=== PATIENT | female | born 1985 ===

== ENCOUNTER 2017-10-07 12:30 | Emergency (ER) | payer OTHER ==
--- NOTE | 2017-10-07 13:39 | ED PDOC ---
HPI: General Adult Time Seen by Provider: 10/07/17 13:35 Chief Complaint (Nursing): Breast Problem Chief Complaint (Provider): Breast Pain History Per: Patient History/Exam Limitations: no limitations Onset/Duration Of Symptoms: Days (x2) Current Symptoms Are (Timing): Still Present Additional Complaint(s): Ibeth Dallas is a 32 year old female, with no past medical history, who presents to the emergency department complaining of bilateral breast pain, and generalized body aches onset for x2 days. Patient denies breast feeding, fever, cough or cold. No further medical complaints. PMD: None provided. Past Medical History Reviewed: Historical Data, Nursing Documentation, Vital Signs Vital Signs: Last Vital Signs Temp 98.3 F 10/07/17 17:13 Pulse 86 10/07/17 17:13 Resp 16 10/07/17 17:13 BP 109/62 10/07/17 17:13 Pulse Ox 100 10/07/17 17:13 - Medical History PMH: No Chronic Diseases - Surgical History Surgical History: No Surg Hx - Family History Family History: States: Unknown Family Hx - Home Medications Home Medications: Ambulatory Orders Medication Instructions Recorded Vit No.126/Iron/Folic 1 tab PO DAILY 03/16/16 [Prenavite] Ibuprofen [Motrin] 600 mg PO Q6H PRN #30 tab 03/20/16 Ibuprofen [Motrin] 600 mg PO Q8 PRN #21 tab 10/07/17 - Allergies Allergies/Adverse Reactions: Allergies Allergy/AdvReac Type Severity Reaction Status Date / Time No Known Allergies Allergy Verified 09/21/15 21:55 Review of Systems ROS Statement: Except As Marked, All Systems Reviewed And Found Negative Constitutional: Positive for: Other (generalized body aches). Negative for: Fever Respiratory: Negative for: Cough Musculoskeletal: Positive for: Other (Bilateral breast pain) Physical Exam - Reviewed Nursing Documentation Reviewed: Yes Vital Signs Reviewed: Yes - Physical Exam Appears: Positive for: Non-toxic Head Exam: Positive for: ATRAUMATIC, NORMAL INSPECTION, NORMOCEPHALIC Skin: Positive for: Normal Color, Warm, Dry Eye Exam: Positive for: Normal appearance Neck: Positive for: Painless ROM Cardiovascular/Chest: Positive for: Regular Rate, Rhythm. Negative for: Murmur Respiratory: Positive for: Normal Breath Sounds (clear auscultation b/l). Negative for: Respiratory Distress Gastrointestinal/Abdominal: Positive for: Soft, Other (b/l axillary region tenderness, along abdomen and back. Multiple lymph nodes noted. ). Negative for : Tenderness Extremity: Positive for: Normal ROM. Negative for: Deformity, Swelling Neurologic/Psych: Positive for: Alert, Oriented - Laboratory Results Result Diagrams: 10/07/17 15:00 10/07/17 15:00 - ECG O2 Sat by Pulse Oximetry: 99 (RA) Pulse Ox Interpretation: Normal - Progress ED Course And Treament: MONO POSITIVE Medical Decision Making Medical Decision Making: Initial Impression: breast pain Initial Plan: --CMP --Urine dipstick --Urine --CBC w/ differential --Toradol 15mg IVP --Urine culture --Infectious Mononucleosis --Influenza A B --Urinalysis --reevaluation ~ Scribe Attestation: Documented by Bruce Em, acting as a scribe for Katlyn Arenas PA-C. Provider Scribe Attestation: All medical record entries made by the Scribe were at my direction and personally dictated by me. I have reviewed the chart and agree that the record accurately reflects my personal performance of the history, physical exam, medical decision making, and the department course for this patient. I have also personally directed, reviewed, and agree with the discharge instructions and disposition. Disposition - Clinical Impression Clinical Impression: Mononucleosis syndrome - Patient ED Disposition Is Patient to be Admitted: No - Disposition Referrals: [facility] [Outside] Disposition: Routine/Home Disposition Time: 18:18 Condition: FAIR Prescriptions: Ibuprofen [Motrin] 600 mg PO Q8 PRN #21 tab PRN Reason: Pain, Moderate (4-7) Instructions: Mononucleosis (ED) Forms: [employer] (Yoruba), [facility] ED School/Work Excuse Print Language: HUNGARIAN
[2017-10-07 14:39] LABS: SQUAMOUS EPITHIAL 1 /hpf (0-5); URINE BILIRUBIN NEGATIVE (NEGATIVE); URINE BLOOD NEGATIVE (NEGATIVE); URINE CLARITY SLIGHTY-CLOUDY (Clear); URINE COLOR YELLOW (YELLOW); URINE GLUCOSE (UA) NEG (Normal); URINE LEUKOCYTE ESTERASE MOD Leu/uL (Negative); URINE NITRATE NEGATIVE (NEGATIVE); URINE PROTEIN NEGATIVE (NEGATIVE); URINE UROBILINOGEN 0.2-1.0 mg/dL (0.2-1.0)
[2017-10-07 15:11] LABS: BASO % 0.3 % (0.0-2.0); EOS # 0.2 K/uL (0.0-0.7); EOS % 3.2 % (0.0-4.0); HEMOGLOBIN 12.8 g/dL (12.0-16.0); LYMPH # 1.8 K/uL (1.0-4.3); LYMPH % 26.6 % (20.0-40.0); MEAN CELL VOLUME 87.9 fl (81.0-99.0); MEAN PLATELET VOLUME 7.9 fl (7.2-11.7); MONO # 0.7 K/uL (0.0-0.8); MONO % 10.5 % (0.0-10.0); NEUT # 3.9 K/uL (1.8-7.0); NEUT % 59.4 % (50.0-75.0); NRBC % 0.2 % (0.0-0.0); RBC 4.42 Mil/uL (3.80-5.20); WHITE BLOOD COUNT 6.6 K/uL (4.8-10.8)
[2017-10-07 15:21] LABS: ALB/GLOB RATIO 1.1 (1.0-2.1); ALT/SGPT 34 U/L (9-52); AST/SGOT 25 U/L (14-36); BLOOD UREA NITROGEN 9 mg/dl (7-17); CALCIUM 9.3 mg/dL (8.4-10.2); GFR AFRICAN-AMERICAN > 60; GFR NON-AFRICAN AMERICAN > 60
[2017-10-07] MEDS ORDERED: Sodium Chloride 0.9% 1,000 ML IV STA ×2 (16:41→19:29)
--- NOTE | 2017-10-07 16:41 | RAD ---
HISTORY: Breast pain, back pain. COMPARISON: No prior. TECHNIQUE: Chest PA and lateral FINDINGS: LUNGS: No active pulmonary disease. PLEURA: No significant pleural effusion identified. No pneumothorax apparent. CARDIOVASCULAR: Normal. OSSEOUS STRUCTURES: No significant abnormalities. VISUALIZED UPPER ABDOMEN: Normal. OTHER FINDINGS: None. IMPRESSION: No active disease.
[2017-10-07] MEDS ORDERED: Morphine 4 MG/ML VIAL IVP STA (16:46)
[2017-10-07] MEDS ORDERED: Morphine 4 MG/ML VIAL ONE (17:12)
[2017-10-07 17:13] VITALS: BP 109/62; PULSE 86; RESP 16; TEMP 98.3
[2017-10-07 18:18] VITALS: O2SAT 99
[2017-10-07] MEDS ORDERED: Sodium Chloride 0.9% 50 ML IV ONE (20:18)
[2017-10-07] MEDS ORDERED: Iohexol 300 100 ML IJ ONE (20:18)
--- NOTE | 2017-10-07 22:00 | CT ---
EXAM: CT Abdomen and Pelvis With Intravenous Contrast EXAM DATE/TIME: 10/07/2017 7:39 PM CLINICAL HISTORY: 32 years old, female; Pain; Abdominal pain; Other: Breast pain. Back pain; Additional info: Abdominal pain / has mono R/O splenic injury TECHNIQUE: Axial computed tomography images of the abdomen and pelvis with intravenous contrast. All CT scans at this facility use one or more dose reduction techniques, viz.: automated exposure control; ma/kV adjustment per patient size (including targeted exams where dose is matched to indication; i.e. head); or iterative reconstruction technique. Coronal and sagittal reformatted images were created and reviewed. CONTRAST: 90 mL of OMNIPAQUE-300 administered intravenously. COMPARISON: US - OB TRANSVAGINAL 2015-09-21 23:02 FINDINGS: Lower thorax: Heart size is normal. Lung bases are clear ABDOMEN: Liver: There is fatty infiltration of the liver. Gallbladder and bile ducts: unremarkable Pancreas: unremarkable Spleen: Spleen is normal in size, 9.5 cm in length. There are small splenules in the left upper quadrant. Adrenals: unremarkable Kidneys and ureters: There are small left renal cyst.Kidneys and ureters are otherwise unremarkable. Stomach and bowel: Stomach is partially distended with air-fluid levels. Rotation is normal. There is no obstruction. Terminal ileum is unremarkable. Appendix is not visualized. There is no pericecal inflammation. Is Colon is incompletely distended which limits evaluation. There is minimal diverticulosis Appendix: See stomach and bowel PELVIS: Bladder: unremarkable Reproductive: There is a nabothian cyst in the cervix. Uterus is otherwise unremarkable. There are no dominant follicles/cysts in both ovaries. ABDOMEN and PELVIS: Intraperitoneal space: There is trace free fluid.There is no free air. Bones/joints: There are no acute osseous abnormalities. Soft tissues: There is a small fat containing umbilical hernia. Vasculature: Vascular structures are unremarkable. Lymph nodes: There is no pathologic adenopathy. IMPRESSION: Fatty liver, no acute solid visceral or bowel abnormality Additional nonemergent findings as described above.
== END 2017-10-07 22:31 | disposition home or self-care (01) ==
LOC: H.ER 12:30
DX: B27.90 Infectious mononucleosis, unspecified without complication (principal); K76.0 Fatty (change of) liver, not elsewhere classified; N28.1 Cyst of kidney, acquired; K42.9 Umbilical hernia without obstruction or gangrene
CPT/HCPCS: 71046; 74177; 80053; 81003; 81025; 82550; 85025; 86308; 87086; 87804; 96374; 96375; 99284; J1885; J2270; J7040; Q9967

== ENCOUNTER 2018-11-15 09:39 | Emergency (ER) | payer OTHER ==
[2018-11-15 09:41] VITALS: BMI 28.3
[2018-11-15 09:42] VITALS: O2SAT 99
[2018-11-15] MEDS ORDERED: Sodium Chloride 0.9% 1,000 ML IV STA (10:04)
[2018-11-15] MEDS ORDERED: Iohexol 300 100 ML IJ ONE (10:15)
[2018-11-15] MEDS ORDERED: Sodium Chloride 0.9% 50 ML IV ONE (10:16)
[2018-11-15 10:33] LABS: BASO % 0.3 % (0.0-2.0); EOS % 0.1 % (0.0-4.0); LYMPH # 0.8 K/uL (1.0-4.3); MEAN CELL VOLUME 87.2 fl (81.0-99.0); MEAN CORPUSCULAR HEMOGLOBIN 29.4 pg (27.0-31.0); MEAN CORPUSCULAR HGB CONC 33.7 g/dL (33.0-37.0); MEAN PLATELET VOLUME 7.9 fl (7.2-11.7); MONO # 0.8 K/uL (0.0-0.8); MONO % 6.8 % (0.0-10.0); NEUT # 9.7 K/uL (1.8-7.0); NEUT % 85.8 % (50.0-75.0); NRBC % 0.1 % (0.0-0.0); PLATELET COUNT 256 K/uL (130-400); RBC 4.44 Mil/uL (3.80-5.20); RED CELL DISTRIBUTION WIDTH 12.8 % (11.5-14.5); WHITE BLOOD COUNT 11.4 K/uL (4.8-10.8)
[2018-11-15 10:34] LABS: SQUAMOUS EPITHIAL 4 /hpf (0-5); URINE BILIRUBIN NEGATIVE (NEGATIVE); URINE BLOOD SMALL (NEGATIVE); URINE CLARITY SLIGHTY-CLOUDY (Clear); URINE COLOR YELLOW (YELLOW); URINE GLUCOSE (UA) NEG (NEGATIVE); URINE LEUKOCYTE ESTERASE MOD Leu/uL (Negative); URINE PROTEIN 30 mg/dL (NEGATIVE); URINE UROBILINOGEN 0.2-1.0 mg/dL (0.2-1.0)
[2018-11-15 10:37] LABS: ALB/GLOB RATIO 1.2 (1.0-2.1); ALBUMIN 4.3 g/dL (3.5-5.0); ALT/SGPT 36 U/L (9-52); AST/SGOT 27 U/L (14-36); BLOOD UREA NITROGEN 8 mg/dl (7-17); CALCIUM 9.2 mg/dL (8.4-10.2); GFR NON-AFRICAN AMERICAN > 60
[2018-11-15 11:40] LABS: LYMPHOCYTE 8 % (20-50); MONOCYTE 5 % (0-10); NEUTROPHIL 87 % (42-75); PLATELET ESTIMATE NORMAL (NORMAL); TOTAL CELLS COUNTED 100
--- NOTE | 2018-11-15 12:33 | CT ---
Date of service: 11/15/2018 PROCEDURE: CT Abdomen and Pelvis with contrast HISTORY: flank/abd pain UTI fever COMPARISON: CT scan of the abdomen and pelvis dated 10/07/2017 TECHNIQUE: Contrast dose: 98 mL Omnipaque 300 Radiation dose: Total exam DLP = 690.19 mGy-cm. This CT exam was performed using one or more of the following dose reduction techniques: Automated exposure control, adjustment of the mA and/or kV according to patient size, and/or use of iterative reconstruction technique. FINDINGS: LOWER THORAX: Unremarkable. LIVER: Diffuse hepatic steatosis. Sub centimeter medial right hepatic lobe cyst. No gross lesion or ductal dilatation. GALLBLADDER AND BILE DUCTS: Unremarkable. PANCREAS: Unremarkable. No gross lesion or ductal dilatation. SPLEEN: Unremarkable main spleen. Small splenules. ADRENALS: Unremarkable. No mass. KIDNEYS AND URETERS: Small left upper pole cysts. No hydronephrosis. No solid mass. VASCULATURE: Unremarkable. No aortic aneurysm. No aortic atherosclerotic calcification or mural plaque present. BOWEL: Unremarkable. No obstruction. No gross mural thickening. APPENDIX: Normal appendix. PERITONEUM: Tiny fat containing umbilical hernia. No free fluid. No free air. LYMPH NODES: Unremarkable. No enlarged lymph nodes. BLADDER: Unremarkable. REPRODUCTIVE: Cervical nabothian cysts. Involuting right corpus luteal follicle. Dominant right ovarian follicle measuring up to 2.8 cm. BONES: No acute fracture. OTHER FINDINGS: None. IMPRESSION: No acute abdominal pelvic pathology.
[2018-11-15 12:42] VITALS: BP 111/56; PULSE 88; RESP 18; TEMP 98.6
--- NOTE | 2018-11-15 13:39 | ED PDOC ---
HPI: General Adult Time Seen by Provider: 11/15/18 09:51 Chief Complaint (Nursing): Flu-like Symptoms Chief Complaint (Provider): fever, body aches, abd pain flank pain History Per: Patient History/Exam Limitations: no limitations Current Symptoms Are (Timing): Still Present Severity: Moderate Recent Trauma: none Additional Complaint(s): 33yo female c/o fever, abd pain and flank pain, nausea, cough with headache and body aches ongoing for 2 days. Denies rash, neck pain, vaginal bleeding or weakness. Past Medical History Reviewed: Historical Data, Nursing Documentation, Vital Signs Vital Signs: Last Vital Signs Temp 98.6 F 11/15/18 12:41 Pulse 88 11/15/18 12:41 Resp 18 11/15/18 12:41 BP 111/56 L 11/15/18 12:41 Pulse Ox 99 11/15/18 12:41 - Medical History PMH: No Chronic Diseases - Family History Family History: States: Unknown Family Hx - Living Arrangements Living Arrangements: With Family - Social History Current smoker - smoking cessation education provided: No - Home Medications Home Medications: Ambulatory Orders Medication Instructions Recorded Vit No.126/Iron/Folic 1 tab PO DAILY 03/16/16 [Prenavite] Ibuprofen [Motrin] 600 mg PO Q6H PRN #30 tab 03/20/16 Famotidine [Pepcid] 20 mg PO BID #10 tab 10/07/17 Ibuprofen [Motrin] 600 mg PO Q8 PRN #21 tab 10/07/17 Cephalexin [Keflex] 500 mg PO TID #15 capsule 11/15/18 Oseltamivir Cap [Tamiflu] 75 mg PO BID #10 cap 11/15/18 - Allergies Allergies/Adverse Reactions: Allergies Allergy/AdvReac Type Severity Reaction Status Date / Time No Known Allergies Allergy Verified 09/21/15 21:55 Review of Systems ROS Statement: Except As Marked, All Systems Reviewed And Found Negative Constitutional: Negative for: Fever ENT: Positive for: Throat Pain Cardiovascular: Negative for: Chest Pain Respiratory: Positive for: Cough Gastrointestinal: Positive for: Nausea, Abdominal Pain. Negative for: Diarrhea, Melena, Hematochezia Genitourinary Female: Positive for: Dysuria Musculoskeletal: Negative for: Neck Pain Skin: Negative for: Rash, Lesions, Jaundice Neurological: Positive for: Headache. Negative for: Weakness, Numbness, Altered Mental Status Physical Exam - Reviewed Nursing Documentation Reviewed: Yes Vital Signs Reviewed: Yes - Physical Exam Appears: Positive for: Well, Non-toxic, No Acute Distress Head Exam: Positive for: ATRAUMATIC, NORMAL INSPECTION, NORMOCEPHALIC Skin: Positive for: Normal Color, Warm, DRY Eye Exam: Positive for: EOMI, Normal appearance, PERRL ENT: Positive for: Normal ENT Inspection Neck: Positive for: Normal, Painless ROM Cardiovascular/Chest: Positive for: Regular Rate, Rhythm Respiratory: Positive for: CNT, Normal Breath Sounds Gastrointestinal/Abdominal: Positive for: Soft, Tenderness (LLQ and L flank) Back: Positive for: Normal Inspection Extremity: Positive for: Normal ROM Neurologic/Psych: Positive for: Alert, Oriented. Negative for: Motor/Sensory Deficits - Laboratory Results Result Diagrams: 11/15/18 10:05 11/15/18 10:05 Lab Results: Total Bilirubin 0.4 mg/dl (0.2-1.3) 11/15/18 10:05 AST 27 U/L (14-36) 11/15/18 10:05 ALT 36 U/L (9-52) 11/15/18 10:05 Alkaline Phosphatase 105 U/L (38-126) 11/15/18 10:05 Total Protein 7.9 G/DL (6.3-8.2) 11/15/18 10:05 Albumin 4.3 g/dL (3.5-5.0) 11/15/18 10:05 Globulin 3.6 gm/dL (2.2-3.9) 11/15/18 10:05 Albumin/Globulin Ratio 1.2 (1.0-2.1) 11/15/18 10:05 Urine Color Yellow (YELLOW) 11/15/18 10:17 Urine Clarity Slighty-cloudy (Clear) 11/15/18 10:17 Urine pH 8.0 (5.0-8.0) 11/15/18 10:17 Ur Specific [place] 1.014 (1.003-1.030) 11/15/18 10:17 Urine Protein 30 mg/dL (NEGATIVE) 11/15/18 10:17 Urine Glucose (UA) Neg mg/dL (NEGATIVE) 11/15/18 10:17 Urine Ketones Negative mg/dL (NEGATIVE) 11/15/18 10:17 Urine Blood Small (NEGATIVE) 11/15/18 10:17 Urine Nitrate Negative (NEGATIVE) 11/15/18 10:17 Urine Bilirubin Negative (NEGATIVE) 11/15/18 10:17 Urine Urobilinogen 0.2-1.0 mg/dL (0.2-1.0) 11/15/18 10:17 Ur Leukocyte Esterase Mod Erlinda/uL (Negative) 11/15/18 10:17 Urine Microscopic WBC 12 /hpf (0-5) H 11/15/18 10:17 Ur Squamous Epith Cells 4 /hpf (0-5) 11/15/18 10:17 - ECG O2 Sat by Pulse Oximetry: 99 Medical Decision Making Medical Decision Making: labs and CT abd pelv initiated r/o pyelonephritis as UDip +leuks WBC mild elev Chem unremarkable CT abd pelv report reviewed Accession No. : [id number] Patient Name / ID : JESSICA DIANE / [id number] Exam Date : 11/15/2018 11:38:31 ( Approved ) Study Comment : Sex / Age : F / 33Y Creator : Ben Bauer MD Dictator : Ben Bauer MD Highway Construction Inspector : Dimpling Machine Operator : Ben Bauer MD Approver2 : Report Date : 11/15/2018 12:30:04 My Comment : Date of service: 11/15/2018 PROCEDURE: CT Abdomen and Pelvis with contrast HISTORY: flank/abd pain UTI fever COMPARISON: CT scan of the abdomen and pelvis dated 10/07/2017 TECHNIQUE: Contrast dose: 98 mL Omnipaque 300 Radiation dose: Total exam DLP = 690.19 mGy-cm. This CT exam was performed using one or more of the following dose reduction techniques: Automated exposure control, adjustment of the mA and/or kV according to patient size, and/or use of iterative reconstruction technique. FINDINGS: LOWER THORAX: Unremarkable. LIVER: Diffuse hepatic steatosis. Sub centimeter medial right hepatic lobe cyst. No gross lesion or ductal dilatation. GALLBLADDER AND BILE DUCTS: Unremarkable. PANCREAS: Unremarkable. No gross lesion or ductal dilatation. SPLEEN: Unremarkable main spleen. Small splenules. ADRENALS: Unremarkable. No mass. KIDNEYS AND URETERS: Small left upper pole cysts. No hydronephrosis. No solid mass. VASCULATURE: Unremarkable. No aortic aneurysm. No aortic atherosclerotic calcification or mural plaque present. BOWEL: Unremarkable. No obstruction. No gross mural thickening. APPENDIX: Normal appendix. PERITONEUM: Tiny fat containing umbilical hernia. No free fluid. No free air. LYMPH NODES: Unremarkable. No enlarged lymph nodes. BLADDER: Unremarkable. REPRODUCTIVE: Cervical nabothian cysts. Involuting right corpus luteal follicle. Dominant right ovarian follicle measuring up to 2.8 cm. BONES: No acute fracture. OTHER FINDINGS: None. IMPRESSION: No acute abdominal pelvic pathology. Given dose rocephin for UTI and elev WBC. No other risk factors for influenza complications although flu negative. Disposition - Clinical Impression Clinical Impression: Influenza-like symptoms, UTI (urinary tract infection) - Patient ED Disposition Is Patient to be Admitted: No Counseled Patient/Family Regarding: Studies Performed, Diagnosis, Need For Followup - Disposition Referrals: [facility] [Outside] Disposition: Routine/Home Disposition Time: 15:30 Condition: STABLE Additional Instructions: Drink plenty of fluids, take medications as directed, avoid close contact with others. Urine culture will return in 2-3 days, you will be called if you need your antibiotic changed. Take tamiflu 2x daily for flu like symptoms of headache, fever/chills and body aches. Return to ER for any worse or new symptoms. Prescriptions: Cephalexin [Keflex] 500 mg PO TID #15 capsule Oseltamivir Cap [Tamiflu] 75 mg PO BID #10 cap Instructions: Urinary Tract Infections in Adults, Urinary Tract Infection, Adult (DC) Forms: [employer] (Albanian)
[2018-11-15] MEDS ORDERED: cefTRIAXone (Rocephin) 1 gm Inj ONE (15:46)
== END 2018-11-15 16:41 | disposition home or self-care (01) ==
LOC: SUPCPDRO 09:39 → H.ER 09:39
DX: J11.1 Influenza due to unidentified influenza virus with other respiratory manifestations (principal); N39.0 Urinary tract infection, site not specified
CPT/HCPCS: 74177; 80053; 81003; 81025; 85025; 87086; 87804; 99285; J0696; J1885; J7030; Q9967